=== PATIENT | male | born 1960 | race Caucasian/White ===

== ENCOUNTER 2017-12-28 08:14 | Day surgery (SDC) | payer OTHER ==
[~2017-12-28] VITALS: Ht 172.7 cm; Wt 88.0 kg
[~2017-12-28 08:14] MED LIST: ALBU90OI INH; ALLO100; ARIPIPRAZOLE5 MG PO; ASPI81CH PO; Aspirin EC81 MG PO; BUSP15 PO; CEPH500 PO; COL-RITE50 MG PO; Crestor20 MG PO; DAILY MULTIPLE1 EACH PO; ESCI20 PO; EZET10 PO; FISH1000 PO; FLAXSEED340 GM PO; GEMF600; HYDACE5 PO; IRON159 MG PO; LAMO100 PO; METO25ER PO; NEBI10 PO; NEBI5; NIAC500; VENL75ER PO; VICODIN 5-3001 EACH PO; VITAMIN D-32000 UNI1 PO; [UNRECOGNIZED DRUG - REMARK]
[2017-12-28] MEDS ORDERED: METO25ER PO (08:21)
[2017-12-28] MEDS ORDERED: DIPH50 PO (08:55)
== END 2017-12-28 15:20 | disposition home or self-care (01) ==
LOC: MHTC 08:14
PROC: B211YZZ Fluoroscopy of Multiple Coronary Arteries using Other Contrast (ICD-10-PCS; principal; 2017-12-28)
PROC: 4A023N7 Measurement of Cardiac Sampling and Pressure, Left Heart, Percutaneous Approach (ICD-10-PCS; principal; 2017-12-28)
DX: I25.118 Atherosclerotic heart disease of native coronary artery with other forms of angina pectoris (principal); I42.1 Obstructive hypertrophic cardiomyopathy; Q23.1 Congenital insufficiency of aortic valve; E78.00 Pure hypercholesterolemia, unspecified; E66.9 Obesity, unspecified; Z87.891 Personal history of nicotine dependence; I10 Essential (primary) hypertension
CPT/HCPCS: 93454; 99152; 99153; C1769; C1894; J1644; J2250; J3010; J7030; Q9967

== ENCOUNTER → 2020-04-16 | Outpatient (CLI) | payer OTHER ==
[~2020-04-16] MED LIST changes: +DIPH50 PO; +Norco 5-325 Ta1 EACH PO; +Pepcid40 MG PO; +Zofran8 MG PO
== END | disposition home or self-care (01) ==
LOC: LAB SRC 15:26 → LAB SHORT 15:26
DX: H60.509 Unspecified acute noninfective otitis externa, unspecified ear (principal)
CPT/HCPCS: 87070; 87077; 87186; 87205

== ENCOUNTER → 2020-07-15 | Outpatient (CLI) | payer OTHER ==
[2020-07-17 21:06] LABS: CHLAMYDIA BY NAA Negative (Negative); GONOCOCCUS BY NAA Negative (Negative); TRICH VAG BY NAA Negative (Negative)
== END | disposition home or self-care (01) ==
LOC: LAB SHORT 10:55 → LAB UCHC 10:55
PROVIDERS: Physician Assistant
DX: Z11.59 Encounter for screening for other viral diseases (principal)
CPT/HCPCS: 87491; 87591; 87661

== ENCOUNTER 2024-09-28 11:00 | Emergency (ER) | payer OTHER ==
[~2024-09-28] VITALS: Ht 172.7 cm; Wt 95.2 kg
[2024-09-28 11:16] LABS: BASOPHILS ABSOLUTE AUTO 0.06 K/mm3 (0.00-0.23); BASOPHILS PERCENT AUTO 1 % (0-2); EOSINOPHILS ABSOLUTE AUTO 0.14 K/mm3 (0.00-0.68); EOSINOPHILS PERCENT AUTO 2 % (0-6); Hematocrit 40.5 % (37.0-53.0); Hemoglobin 14.1 g/dL (13.5-17.5); IMMATURE GRAN ABSOLUTE AUTO 0.03 K/mm3 (0.00-0.10); IMMATURE GRAN PERCENT AUTO 0 % (0-1); LYMPHOCYTES ABSOLUTE AUTO 2.86 K/mm3 (0.84-5.20); LYMPHOCYTES PERCENT AUTO 31 % (21-46); MONOCYTES ABSOLUTE AUTO 1.13 K/mm3 (0.16-1.47); MONOCYTES PERCENT AUTO 12 % (4-13); Mean Corpuscular HGB 31.1 pg (26.0-34.0); Mean Corpuscular HGB Conc 34.8 g/dL (31.5-36.5); Mean Corpuscular Volume 89 fL (80-100); Mean Platelet Volume 10.6 fL (9.1-12.4); NEUTROPHILS ABSOLUTE AUTO 5.11 K/mm3 (1.96-9.15); NEUTROPHILS PERCENT AUTO 55 % (41-73); Platelet Count 180 K/mm3 (150-400); RDW Standard Deviation 39.1 fL (35.1-46.3); Red Blood Cell Count 4.54 M/mm3 (4.30-5.90); White Blood Cell Count 9.33 K/mm3 (4.00-11.30)
[2024-09-28] MEDS ORDERED: AMLODIPINE BESYL5 MG PO (11:19)
[2024-09-28] MEDS ORDERED: PROPRANOLOL HC120 MG (11:19)
[2024-09-28] MEDS ORDERED: METFORMIN HCL500 M2 PO (11:19)
[2024-09-28] MEDS ORDERED: ATOR40TA PO (11:20)
[2024-09-28 11:41] LABS: Albumin, Blood 3.7 g/dL (3.4-5.0); Albumin/Globulin Ratio 1.1 (0.8-1.8); Bilirubin, Total 0.4 mg/dL (0.1-1.0); Bun/Creatinine Ratio 15.2 (12.0-20.0); Calcium, Blood 8.9 mg/dL (8.5-10.1); Creatinine, Blood 0.86 mg/dL (0.60-1.20); Globulin, Blood 3.4 g/dL (2.2-4.0); Potassium, Blood 4.2 mmol/L (3.5-5.5); Total Protein, Blood 7.1 g/dL (6.4-8.2)
[2024-09-28 14:15] VITALS: BP 149/99
== END 2024-09-28 14:20 | disposition home or self-care (01) ==
LOC: ER 11:00
PROVIDERS: Emergency Medicine
DX: R07.9 Chest pain, unspecified (principal); E78.00 Pure hypercholesterolemia, unspecified; I10 Essential (primary) hypertension; Z79.84 Long term (current) use of oral hypoglycemic drugs; Z79.82 Long term (current) use of aspirin; Z79.899 Other long term (current) drug therapy
CPT/HCPCS: 71046; 80053; 83690; 84484; 85025; 93005; 93010; 99285-25

== ENCOUNTER 2024-12-01 08:24 | Day surgery (SDC) | payer OTHER ==
[~2024-12-01] VITALS: Ht 172.7 cm; Wt 96.4 kg
[~2024-12-01 08:24] MED LIST changes: +AMLODIPINE BESYL5 MG PO; +ATOR40TA PO; +METFORMIN HCL500 M2 PO; +PROPRANOLOL HC120 MG
[2024-12-01] MEDS ORDERED: CeFAZolin Sodium 2,000 MG VIAL ONE (08:46)
[2024-12-01] MEDS ORDERED: NS 100 ML IV ONE (08:46)
[2024-12-01] MEDS ORDERED: MULVITA (09:04)
[2024-12-01] MEDS ORDERED: Lidocaine 2%-Epineph 1:100000 20 ML MDV ONE (10:28)
[2024-12-01] MEDS ORDERED: Midazolam HCl 1MG / ML 2ML Vial ONE (10:33)
[2024-12-01] MEDS ORDERED: Bupivacaine 0.5% HCl 5 MG/ML 30MLVIAL INJ ONE (10:50)
[2024-12-01] MEDS ORDERED: FentaNYL Citrate 50 MCG/ML 2 ML Injection ONE (10:53)
[2024-12-01 11:29] VITALS: BP 112/84
== END 2024-12-01 12:13 | disposition home or self-care (01) ==
LOC: ORSCSDS 08:24
PROVIDERS: Orthopaedic Surgery
PROC: 01N50ZZ Release Median Nerve, Open Approach (ICD-10-PCS; principal; 2024-12-01 10:00)
DX: G56.01 Carpal tunnel syndrome, right upper limb (principal); M25.531 Pain in right wrist; Z79.82 Long term (current) use of aspirin; I10 Essential (primary) hypertension; E78.5 Hyperlipidemia, unspecified; Z87.891 Personal history of nicotine dependence; Z79.899 Other long term (current) drug therapy; Z79.84 Long term (current) use of oral hypoglycemic drugs
CPT/HCPCS: 82947; J0690; J2250; J2704; J3010; J7120